=== PATIENT | male | born 1975 | race Caucasian/White ===

== ENCOUNTER 2024-05-06 03:49 | Day surgery (SDC) | payer OTHER ==
[2024-04-30 15:25] VITALS: BMI 27.6
[2024-05-06 07:16] VITALS: RESP 16
[2024-05-06] MEDS ORDERED: MIDAZOLAM HCL 2 MG/2 ML SINGLE DOSE VIAL ONE (08:57)
[2024-05-06 13:08] VITALS: BP 109/88; PULSE 72
[2024-05-06 13:13] VITALS: TEMP 98
== END 2024-05-06 12:00 | disposition home or self-care (01) ==
LOC: JASU-SURG 03:49
PROVIDERS: ATTEND Urology
PROC: 0TF4XZZ Fragmentation in Left Kidney Pelvis, External Approach (ICD-10-PCS; principal; 2024-05-06 09:04)
DX: N20.0 Calculus of kidney (principal)